=== PATIENT | male | born 1965 | race Caucasian/White ===

== ENCOUNTER 2024-06-04 10:40 | Emergency (ER) | payer MEDICARE, SELFPAY ==
[2024-06-04] VITALS (9 sets, daily range): BP systolic 130–167; BP diastolic 60–104; PULSE 62–72; RESP 17–28; TEMP 36.8; O2SAT 96–99; BMI 30.4
--- NOTE | 2024-06-04 | DI.US.S_ITS ---
PROCEDURE: US PERIPH VENOUS LOW EXTREM LT INDICATIONS: LLE pain redness swelling; hx major trauma repair TECHNIQUE: Real-time imaging, as well as color and pulse Doppler interrogation, were performed of the lower extremity deep veins from the inguinal ligament to the popliteal fossa, with documentation of the visualized calf veins. COMPARISON: None. FINDINGS: The common femoral, femoral, popliteal, and the visualized calf veins are normally compressible, and free of intraluminal thrombus. Color and pulse Doppler demonstrate normal phasic intraluminal flow. There is normal augmentation response to distal compression maneuver. Nonspecific subcutaneous edema is seen at the distal lower extremity. IMPRESSION: No findings of lower extremity deep venous thrombosis. Approved by: Guido Carver M.D. on 06/04/2024 at 14:02
--- NOTE | 2024-06-04 11:31 | ED_ITS ---
HPI - Extremity Problem <Ml Mukherjee PA-C - Last Filed: 06/04/24 19:20> General Chief complaint: Extremity Problem,Nontraumatic Stated complaint: Possible Lower left leg Infection . Time Seen by Provider: 06/04/24 11:31 Source: patient Mode of arrival: Ambulatory History of Present Illness HPI Narrative: Mr. Daniel is a pleasant 58-year-old male with a past medical history of significant left leg trauma in who presents to the emergency department for left lower leg pain, redness, swelling x 5 days. He lives in [facility], and drove to this area on Friday, about 6-8 [address] ride. He wore compression sock and soccer ha guard to cover his skin graft for this long drive. He went to sleep with this compression sock and ha guard on and when he woke up in the morning and removed it the leg was very painful and swollen. Patient went to [facility] emergency department on 06/01/24 for 1 day of severe pain behind the left knee, it was not red at this time. Patient had a left lower extremity vascular ultrasound performed which revealed no evidence of DVT however it was a limited study due to scar tissue. The x-ray demonstrates extremely severe arthritic changes of the knee. Patient was prescribed Percocet and meloxicam. Patient states the next morning when he woke up, the leg was extremely red and discolored and became even more swollen. He is here today because of this redness and concern for infection. Denies fevers but reports he has been feeling very warm and sweaty and just feels overall fatigued and not quite right. He denies chest pain, shortness of breath, blood thinner use, he does not regularly follow with an orthopedic doctor, he had a surgery performed in [place] in the . He reports that there is hardware in the left leg. He does have chronic decreased sensation on the top of the left foot, reports that his sensation is currently the same but he does have the sensation of pins and needles on the bottom of the foot because of the swelling. His only chronic prescription is naproxen for pain. Related Data Previous Rx's Medication Instructions Recorded cephalexin 500 mg capsule 500 mg PO QID 7 days #28 caps 06/04/24 doxycycline hyclate 100 mg capsule 100 mg PO BID 7 days #14 caps 04/25/25 ondansetron 4 mg disintegrating 4 mg PO Q8H PRN nausea and 06/04/24 tablet vomiting #14 tabs Allergies Allergy/AdvReac Type Severity Reaction Status Date / Time Penicillins Allergy Verified 06/04/24 10:59 Review of Systems <Ml Mukherjee PA-C - Last Filed: 06/04/24 19:20> Review of Systems ROS Unobtainable: All systems reviewed & are unremarkable except as noted in HPI and below Patient History <Ml Mukherjee PA-C - Last Filed: 06/04/24 19:20> Medical History (Updated 06/05/24 @ 19:18 by Silvana Waldorp MD) Traumatic injury of left lower extremity Tobacco dependence Hyperlipidemia Family History (Updated 06/05/24 @ 19:19 by Silvana Waldrop MD) Father Diabetes mellitus Aunt Cancer Social History household members: spouse Smoking Status: Current every day smoker Smoking Status: Current every day smoker Exam <Ml Mukherjee PA-C - Last Filed: 06/04/24 19:20> Narrative Exam Narrative: GENERAL: 58 year old patient appears stated age. Well-developed patient, in no acute distress. HEAD: Atraumatic. Normocephalic. EYES: No scleral icterus. No injection or drainage. NECK: Trachea midline. Cervical ROM intact. CARDIOVASCULAR: Somewhat irregular rhythm, normal rate. RESPIRATORY: ?Nonlabored respirations. ?Speaking in clear, full sentences. ?Clear to auscultation. Breath sounds equal bilaterally. No wheezes, rales, or rhonchi. ? GASTROINTESTINAL: Abdomen soft, non-tender, nondistended. EXTREMITIES: Left lower extremity with significant chronic skin deformity, across the mid left knee is a line of surgical scar tissue from prior skin graft extending to the mid anterior ha. Significant scar tissue on both anterior and posterior left knee. Overlying the skin graft there is darkened erythema and purple skin, there is blotching, NONblanchable erythema extending distally down the anterior left lower extremity extending onto the foot. There is 2-3+ pitting edema of the left lower extremity. On the lateral left knee there is a slight skin abrasion with serosanguineous drainage. Patient does have sensation intact to light touch on the plantar and dorsal foot, DP and PT pulses are not palpable in the left foot however they are detectable with Doppler US. Capillary refill takes approximately 3 seconds on the distal left toes. There is no erythema, streaking, or skin changes proximal to the old surgical scars. The right lower extremity is normal with no edema erythema and strong palpable pulses. There is no palpable crepitus, no pain out of proportion to the exam. NEURO: AOx3. ?Clear speech. ?Moves all 4 extremities appropriately, pain with weight-bearing on the left lower extremity. Initial Vital Signs Initial Vital Signs: Vital Signs Temperature 98.3 F 06/04/24 10:54 Pulse Rate 72 06/04/24 10:54 Respiratory Rate 20 06/04/24 10:54 Blood Pressure 143/84 H 06/04/24 10:54 Pulse Oximetry 97 06/04/24 10:54 Oxygen Delivery Method Room Air 06/04/24 10:54 <Jono Sy MD - Last Filed: 06/09/24 07:31> Initial Vital Signs Initial Vital Signs: Vital Signs Temperature 98.3 F 06/04/24 10:54 Pulse Rate 72 06/04/24 10:54 Respiratory Rate 20 06/04/24 10:54 Blood Pressure 143/84 H 06/04/24 10:54 Pulse Oximetry 97 06/04/24 10:54 Oxygen Delivery Method Room Air 06/04/24 10:54 Course <Ml Mukherjee PA-C - Last Filed: 06/04/24 19:20> Orders Ordered: Discontinued Medications Doxycycline Hyclate (Doxycycline Hyclate 100 Mg Tablet) 100 mg PO NOW ONE Stop: 06/04/24 15:53 Last Admin: 06/04/24 15:58 Dose: 100 mg Documented By: RB Sodium Chloride (Normal Saline 0.9%) 1,000 mls @ 1,000 mls/hr IV BOLUS ONE Stop: 06/04/24 12:44 Last Infusion: 06/04/24 13:48 Dose: Infused Documented By: Admin: 06/04/24 12:37 Dose: 1,000 mls/hr Documented By: RB Ceftriaxone Sodium 1,000 mg/ (Sodium Chloride) 100 mls @ 200 mls/hr IV NOW ONE Stop: 06/04/24 14:24 Last Infusion: 06/04/24 15:12 Dose: Infused Documented By: Admin: 06/04/24 14:30 Dose: 200 mls/hr Documented By: RB Ondansetron HCl (Ondansetron 4 Mg/2 Ml Inj) 4 mg IV NOW PRN PRN Reason: Nausea And Vomiting Ondansetron HCl (Ondansetron 4 Mg Odt) 4 mg SL NOW PRN PRN Reason: Nausea And Vomiting Ondansetron HCl (Ondansetron 4 Mg Odt) 4 mg SL NOW ONE Stop: 06/04/24 15:55 Last Admin: 06/04/24 15:58 Dose: 4 mg Documented By: RB Vital Signs Vital signs: Vital Signs - 8 hr 06/04/24 10:54 06/04/24 11:45 06/04/24 12:00 Temperature 98.3 F Pulse Rate 72 66 62 Respiratory Rate 20 Blood Pressure 143/84 H 142/74 H 151/73 H Pulse Oximetry 97 97 97 Oxygen Delivery Method Room Air Room Air Room Air 06/04/24 12:30 06/04/24 13:00 06/04/24 13:30 Temperature Pulse Rate 64 67 67 Respiratory Rate 24 28 H 26 H Blood Pressure 130/83 167/72 H 159/104 H Pulse Oximetry 97 98 98 Oxygen Delivery Method Room Air Room Air Room Air 06/04/24 14:00 06/04/24 14:30 06/04/24 15:30 Temperature Pulse Rate 67 67 72 Respiratory Rate 27 H 17 24 Blood Pressure 143/60 H 152/65 H 156/76 H Pulse Oximetry 99 98 96 Oxygen Delivery Method Room Air Room Air Room Air <Jono Sy MD - Last Filed: 06/09/24 07:31> Orders Ordered: Discontinued Medications Doxycycline Hyclate (Doxycycline Hyclate 100 Mg Tablet) 100 mg PO NOW ONE Stop: 06/04/24 15:53 Last Admin: 06/04/24 15:58 Dose: 100 mg Documented By: RB Sodium Chloride (Normal Saline 0.9%) 1,000 mls @ 1,000 mls/hr IV BOLUS ONE Stop: 06/04/24 12:44 Last Infusion: 06/04/24 13:48 Dose: Infused Documented By: Admin: 06/04/24 12:37 Dose: 1,000 mls/hr Documented By: RB Ceftriaxone Sodium 1,000 mg/ (Sodium Chloride) 100 mls @ 200 mls/hr IV NOW ONE Stop: 06/04/24 14:24 Last Infusion: 06/04/24 15:12 Dose: Infused Documented By: Admin: 06/04/24 14:30 Dose: 200 mls/hr Documented By: RB Ondansetron HCl (Ondansetron 4 Mg/2 Ml Inj) 4 mg IV NOW PRN PRN Reason: Nausea And Vomiting Ondansetron HCl (Ondansetron 4 Mg Odt) 4 mg SL NOW PRN PRN Reason: Nausea And Vomiting Ondansetron HCl (Ondansetron 4 Mg Odt) 4 mg SL NOW ONE Stop: 06/04/24 15:55 Last Admin: 06/04/24 15:58 Dose: 4 mg Documented By: RB Vital Signs Vital signs: Vital Signs - 8 hr 06/04/24 10:54 06/04/24 11:45 06/04/24 12:00 Temperature 98.3 F Pulse Rate 72 66 62 Respiratory Rate 20 Blood Pressure 143/84 H 142/74 H 151/73 H Pulse Oximetry 97 97 97 Oxygen Delivery Method Room Air Room Air Room Air 06/04/24 12:30 06/04/24 13:00 06/04/24 13:30 Temperature Pulse Rate 64 67 67 Respiratory Rate 24 28 H 26 H Blood Pressure 130/83 167/72 H 159/104 H Pulse Oximetry 97 98 98 Oxygen Delivery Method Room Air Room Air Room Air 06/04/24 14:00 06/04/24 14:30 06/04/24 15:30 Temperature Pulse Rate 67 67 72 Respiratory Rate 27 H 17 24 Blood Pressure 143/60 H 152/65 H 156/76 H Pulse Oximetry 99 98 96 Oxygen Delivery Method Room Air Room Air Room Air MDM - Extremity (Nontraumatic) <Ml Mukherjee PA-C - Last Filed: 06/04/24 19:20> Medical Records Attestation: I reviewed the patient's medical records. Medical records narrative: No medical records in our EMR however I did review printed records from [employer] on 06/01/24. Lab Data 06/04/24 12:22 06/04/24 12:22 Labs: Lab Results 06/04/24 06/04/24 Range/Units 12:22 13:40 WBC 8.8 (4.5-11.0) X10^3/uL RBC 4.52 (4.5-5.9) X10^6/uL Hgb 14.0 (13.5-17.5) g/dL Hct 39.8 L (41-53) % MCV 88.1 (80-100) fL MCH 31.0 (26-34) PG MCHC 35.2 (30-36) % RDW 14.4 (11.6-14.8) % Plt Count 179 (150-400) X10^3/uL Neut % (Auto) 72.9 (50-75) % Lymph % (Auto) 15.1 L (25-40) % Lyman % (Auto) 11.2 (3-14) % Eos % (Auto) 0.2 L (2-4) % Baso % (Auto) 0.6 (0-2) % Neut # (Auto) 6400 (2286-4392) /uL Lymph # (Auto) 1300 (9882-0643) /uL Lyman # (Auto) 1000 H (0-900) /uL Eos # (Auto) 0 (0-450) /uL Baso # (Auto) 100 (0-100) /uL PT 13.4 H (9.4-12.5) SECONDS INR 1.2 (0.9-1.3) APTT 30 (25.1-36.5) SECONDS Sodium 132 L (137-145) mmol/L Potassium 4.0 (3.4-5.1) mmol/L Chloride 103 (98-107) mmol/L Carbon Dioxide 20 L (22-32) mmol/L BUN 25 H (9-20) mg/dL Creatinine 0.96 (0.66-1.25) mg/dL Estimated GFR > 60 (>60) mL/min BUN/Creatinine Ratio 26.0 H (6-22) Glucose 138 H (70-99) mg/dL Lactate 1.2 (0.7-2.1) mmol/L Calcium 8.3 L (8.4-10.2) mg/dL Total Bilirubin 1.1 (0.2-1.3) mg/dL AST 63 H (17-59) IU/L ALT 58 H (<50) IU/L Alkaline Phosphatase 66 (38-126) U/L Total Creatine Kinase 73 (55-170) U/L Total Protein 6.9 (6.3-8.2) g/dL Albumin 3.6 (3.5-5.0) g/dL Globulin 3.3 (1.7-4.1) g/dL Albumin/Globulin Ratio 1.1 (1.0-2.8) Lipase 24 (23-300) U/L Procalcitonin 1.14 H (<0.5) ng/mL Urine Color Dark yellow Urine Appearance Clear Urine pH 6.0 (4.5-8.0) Ur Specific [place] 1.020 (1.000-1.035) Urine Protein 1+ H (Negative) Urine Glucose (UA) Negative (Negative) g/dL Urine Ketones Negative (NEGATIVE) Urine Occult Blood 1+ H (Negative) Urine Nitrate Positive H (Negative) Urine Bilirubin Negative (NEGATIVE) Urine Urobilinogen 2.0 H (0.2) E.U./dL Ur Leukocyte Esterase Negative (NEGATIVE) Urine RBC 1-5/hpf (0-5/HPF) Urine WBC None seen (0-5/HPF) Ur Squamous Epith Cells None seen (0-5/HPF) Urine Bacteria None seen (None) Ur Culture Indicated? Specimen cultured Vol Urine Centrifuged 10ml (spun) Imaging Data LLE Venous US: Radiologist's Impression: PROCEDURE: US PERIPH VENOUS LOW EXTREM LT INDICATIONS: LLE pain redness swelling; hx major trauma repair TECHNIQUE: Real-time imaging, as well as color and pulse Doppler interrogation, were performed of the lower extremity deep veins from the inguinal ligament to the popliteal fossa, with documentation of the visualized calf veins. COMPARISON: None. FINDINGS: The common femoral, femoral, popliteal, and the visualized calf veins are normally compressible, and free of intraluminal thrombus. Color and pulse Doppler demonstrate normal phasic intraluminal flow. There is normal augmentation response to distal compression maneuver. Nonspecific subcutaneous edema is seen at the distal lower extremity. IMPRESSION: No findings of lower extremity deep venous thrombosis. Chest x-ray: Radiologist's Impression: PROCEDURE: XR CHEST 1V INDICATIONS: suspected sepsis TECHNIQUE: One view of the chest was acquired. COMPARISON: None. FINDINGS: Surgical changes and devices: None. Lungs and pleura: Lungs are clear. No pleural effusions or pneumothorax. Mediastinum: Mediastinal contours appear normal. Heart size is normal. Bones and chest wall: No suspicious bony lesions. Overlying soft tissues appear unremarkable. IMPRESSION: No acute cardiopulmonary abnormality is seen X-Ray Left Knee: Radiologist's Impression: PROCEDURE: XR KNEE LT 3V INDICATIONS: swelling in left lower extremeity TECHNIQUE: 3 views of the knee were acquired. COMPARISON: None. FINDINGS: Bones: Tricompartmental degenerative changes with remodeling of the articular surfaces. Sclerotic appearance of the posterior medial tibial plateau. Chronic osseous irregularity mild heterotopic calcifications are in the may be related to remote prior trauma. Soft tissues: Small joint effusion with possible suprapatellar loose body. IMPRESSION: 1. Suspected chronic posttraumatic changes surrounding the knee with superimposed tricompartmental osteoarthrosis. Findings could obscure an acute injury, and further evaluation with CT or MRI could be performed if there is continued clinical concern. 2. Small joint effusion with suspected loose body. CT Angio Abd Aorta Runoff : Radiologist's Impression: PROCEDURE: CT ANGIO ABD AORTA RUNOFF INDICATIONS: LLE red/swollen/painful x 5 days; hx major LLE trauma repair TECHNIQUE: After the administration of intravenous contrast, 2.5 mm sections acquired from T12 to the feet, with optional delayed image acquisition from the knees to the feet. 3-dimensional maximum intensity projection (MIP) coronal and sagittal reformats, and/or 3-dimensional volume rendering reformatting was then performed. For radiation dose reduction, the following was used: automated exposure control. COMPARISON: [facility], , US PERIPH VENOUS LOW EXTREM LT, 06/04/2024, 13:22. [facility], , XR KNEE LT 3V, 06/04/2024, 11:51. FINDINGS: Image Quality: Diagnostic. Abdominal aorta: [id number] atherosclerotic calcifications. No aneurysm or dissection. Splanchnic vessels: Celiac trunk, superior mesenteric artery, and inferior mesenteric artery are patent. Renal arteries are patent bilaterally. Right lower extremity: Atherosclerotic calcifications within the common, external, and internal iliac arteries without hemodynamically significant stenosis. Common, superficial, and deep femoral arteries are patent. Popliteal artery is patent where visualized. Anterior tibial artery origin and tibioperoneal trunk are patent. Posterior tibial artery is not well visualized after its origin and there is 2 vessel runoff to the foot. Posterior tibial artery within the foot is fed via the peroneal artery. Dorsalis pedis artery appears patent. Left lower extremity: Atherosclerotic calcifications within the common, external, and internal iliac arteries without hemodynamically significant stenosis. Common, superficial, and deep femoral arteries are patent. Mild atherosclerotic calcifications within the above knee popliteal artery without hemodynamically significant stenosis. Anterior tibial artery origin and tibioperoneal trunk are patent. Posterior tibial artery is not well visualized after its origin and there is 2 vessel runoff to the foot. Posterior tibial artery within the foot is fed via the peroneal artery. Dorsalis pedis artery appears patent. Lower Chest: Heart is mildly enlarged. Lung bases are clear. ABDOMEN: Liver: No solid mass. Liver is hypoattenuating compatible with fatty infiltration. Gallbladder: No radiopaque gallstones or wall thickening. Biliary ducts: No biliary dilation. Pancreas: No ductal dilation. Spleen: Size is within normal limits. Adrenal Glands: No adrenal nodules. Kidneys and Ureters: No hydronephrosis. No solid mass. No complex renal cystic lesion which requires follow up. Stomach and Bowel: Normal colonic caliber, without significant wall thickening. Peritoneum: No abnormal intraperitoneal fluid. No free air. Ventral Wall: No hernia. Abdominal Nodes: No retroperitoneal or mesenteric adenopathy by size criteria. Vessels: Aorta and inferior vena cava are normal in size. PELVIS: Pelvic Organs: Prostate is mildly enlarged. Bladder: Unremarkable. Pelvic Nodes: No enlarged lymph nodes. Prominent left popliteal lymph nodes are noted that are likely reactive. Miscellaneous: No inguinal hernias are seen. Bones and extremities: No aggressive osseous abnormality. Subcutaneous edema is seen throughout the left foot and ankle as well as the lower leg ache and the lateral portion of the distal thigh. No soft tissue gas. No focal fluid collection. No intermuscular fascial edema is seen. No focal osseous erosion is seen to suggest osteomyelitis. Degenerative changes are seen in the left midfoot. Mild mortise joint osteoarthrosis bilaterally. Bilateral calcaneal enthesophytes. Postsurgical changes at the medial left lower leg with loss of normal subcutaneous tissues in the proximal calf. Right knee arthroplasty is present. Chronic posttraumatic changes in the left knee with superimposed severe tricompartmental osteoarthrosis. Large ossification posterior to the knee likely an intra-articular loose body. A few small ossifications are seen adjacent to the posterior intercondylar notch. Partial osseous bridging across the proximal tibiofibular joint. IMPRESSION: 1. No acute vascular occlusion or high-grade stenosis. Poor visualization of the bilateral posterior tibial arteries, which may be congenital given symmetry and normal distal flow versus secondary to chronic occlusions. 2. Diffuse subcutaneous edema in the left lower leg and foot, which is nonspecific but may be related to cellulitis. No soft tissue gas. No signs of fasciitis or osteomyelitis. 3. Chronic posttraumatic changes in the left knee and left calf with superimposed severe left knee osteoarthrosis. [facility] Narrative Medical decision making narrative: 58-year-old male with a past medical history of significant left leg trauma in who presents to the emergency department for left lower leg pain, redness, swelling x 5 days. Differential diagnosis includes but is not limited to cellulitis, DVT, venous stasis, skin graft complication, vascular complication, osteomyelitis, etc. On exam the patient is in no acute distress, nontoxic appearing, vital signs appropriate. He is afebrile but reports feeling feverish. He has significant chronic scarring deformities of the left knee from prior skin grafts, hardware. He now has extensive edema, nonblachable erythema skin changes of the left lower extremity that is new. We will obtain labs, blood cultures, CT ABD Angio with runoff, left lower extremity venous ultrasound, knee and chest x-ray. Patient declines any pain medication at this time. Case was discussed with Dr. Sy. Labs reveal normal WBC count 8.8, hemoglobin 14.0, hematocrit 39.8. Platelets 179. Sodium slightly decreased at 132, potassium 4.0, BUN 25, creatinine 0.96. Glucose 138. Lactate normal at 1.2. Calcium slightly low at 8.3. Mild elevations of AST and ALT at 63 and 58 respectively. Procalcitonin is elevated at 1.14. CK normal 73. Urine was dark so urinalysis was obtained revealing nitrate positive however no other signs of infection, urine was sent for culture. Patient was treated with 1 g of IV Rocephin for a skin infection which will also cover for any urine infection. Chest x-ray reveals no acute cardiopulmonary abnormality. Left lower extremity vascular ultrasound reveals no findings of lower extremity deep venous thrombosis. Knee x-ray reveals suspected chronic posttraumatic changes around the knee with superimposed tricompartmental osteoarthritis. Findings could obscure an acute injury and further evaluation with CT or MRI could be performed. Small joint effusion with suspected loose body. CT angio abdominal aorta with runoff reveals no acute vascular occlusion or high-grade stenosis. There is diffuse subcutaneous edema in the left lower leg and foot, which is nonspecific may be related to cellulitis. No soft tissue gas. No signs of fasciitis or osteomyelitis. Chronic posttraumatic changes in the left knee and left calf with superimposed severe left knee osteoarthrosis. Overall patient's workup physical exam consistent with cellulitis of the left lower extremity, no signs of deep space infection at this time or vascular problems. Patient was treated with Rocephin and doxycycline in the emergency department, we will continue with doxycycline and cephalexin at home. Recommended supportive care with elevation, compression, prompt follow up with PCP and ortho/vascular surgery for further management. Discussed very strict ED return precautions. Patient verbalized understanding all information is agreeable with the plan, feeling better, stable for discharge home. <Jono Sy MD - Last Filed: 06/09/24 07:31> Lab Data Labs: Lab Results 06/04/24 06/04/24 Range/Units 12:22 13:40 WBC 8.8 (4.5-11.0) X10^3/uL RBC 4.52 (4.5-5.9) X10^6/uL Hgb 14.0 (13.5-17.5) g/dL Hct 39.8 L (41-53) % MCV 88.1 (80-100) fL MCH 31.0 (26-34) PG MCHC 35.2 (30-36) % RDW 14.4 (11.6-14.8) % Plt Count 179 (150-400) X10^3/uL Neut % (Auto) 72.9 (50-75) % Lymph % (Auto) 15.1 L (25-40) % Lyman % (Auto) 11.2 (3-14) % Eos % (Auto) 0.2 L (2-4) % Baso % (Auto) 0.6 (0-2) % Neut # (Auto) 6400 (3605-5764) /uL Lymph # (Auto) 1300 (3999-1165) /uL Lyman # (Auto) 1000 H (0-900) /uL Eos # (Auto) 0 (0-450) /uL Baso # (Auto) 100 (0-100) /uL PT 13.4 H (9.4-12.5) SECONDS INR 1.2 (0.9-1.3) APTT 30 (25.1-36.5) SECONDS Sodium 132 L (137-145) mmol/L Potassium 4.0 (3.4-5.1) mmol/L Chloride 103 (98-107) mmol/L Carbon Dioxide 20 L (22-32) mmol/L BUN 25 H (9-20) mg/dL Creatinine 0.96 (0.66-1.25) mg/dL Estimated GFR > 60 (>60) mL/min BUN/Creatinine Ratio 26.0 H (6-22) Glucose 138 H (70-99) mg/dL Lactate 1.2 (0.7-2.1) mmol/L Calcium 8.3 L (8.4-10.2) mg/dL Total Bilirubin 1.1 (0.2-1.3) mg/dL AST 63 H (17-59) IU/L ALT 58 H (<50) IU/L Alkaline Phosphatase 66 (38-126) U/L Total Creatine Kinase 73 (55-170) U/L Total Protein 6.9 (6.3-8.2) g/dL Albumin 3.6 (3.5-5.0) g/dL Globulin 3.3 (1.7-4.1) g/dL Albumin/Globulin Ratio 1.1 (1.0-2.8) Lipase 24 (23-300) U/L Procalcitonin 1.14 H (<0.5) ng/mL Urine Color Dark yellow Urine Appearance Clear Urine pH 6.0 (4.5-8.0) Ur Specific [place] 1.020 (1.000-1.035) Urine Protein 1+ H (Negative) Urine Glucose (UA) Negative (Negative) g/dL Urine Ketones Negative (NEGATIVE) Urine Occult Blood 1+ H (Negative) Urine Nitrate Positive H (Negative) Urine Bilirubin Negative (NEGATIVE) Urine Urobilinogen 2.0 H (0.2) E.U./dL Ur Leukocyte Esterase Negative (NEGATIVE) Urine RBC 1-5/hpf (0-5/HPF) Urine WBC None seen (0-5/HPF) Ur Squamous Epith Cells None seen (0-5/HPF) Urine Bacteria None seen (None) Ur Culture Indicated? Specimen cultured Vol Urine Centrifuged 10ml (spun) Discharge Plan Departure Patient Disposition: Home Clinical Impression: Cellulitis of left lower extremity, Arthritis of knee, left Instructions: DI for Cellulitis -- Adult Activity Restrictions/Additional Instructions: Dear Mr. Daniel, Thank you for coming to the emergency department. Today we obtained lab work, blood cultures, urine testing, chest x-ray, knee x-ray, left lower leg ultrasound, and a CT scan of the arteries in your abdomen and legs. Your workup today is consistent with cellulitis which is skin and soft tissue infection of the left leg. Please complete the full course of prescribed oral antibiotics, use the previously prescribed pain medication as needed. Please rest, elevate the left leg above the level of the heart, use a comfortable compression stocking and keep the leg clean, dry and covered. Reutrn to the ER immediately for worsening pain, swelling, color change, fevers, chills, chest pain, shortness of breath or any other concerns. Please follow up with your primary care doctor within the next 2-3 days for ER follow-up. (If you do not have a PCP you can call [phone]. ?to schedule an appointment with an [facility] Primary Care Provider) IF YOU DEVELOP ANY NEW OR WORSENING SYMPTOMS, RETURN TO THE ER! Please read the attached instructions, they highlight more specific treatments and interventions for you at home. Thank you for letting me participate in your care, Ml Mukherjee PA-C Prescriptions: New cephalexin 500 mg capsule 500 mg PO QID 7 Days Qty: 28 0RF ondansetron 4 mg tablet,disintegrating 4 mg PO Q8H PRN (Reason: nausea and vomiting) Qty: 14 0RF doxycycline hyclate 100 mg capsule 100 mg PO BID 7 Days Qty: 14 0RF Stand Alone Forms: Patient Portal/API/Survey ED Sign-out <Jono Sy MD - Last Filed: 06/09/24 07:31> [facility] I was immediately available in the department for consultation. ?This documentation has been reviewed and I agree with assessment and plan. Supervised by Jono Sy MD
--- NOTE | 2024-06-04 11:46 | DI.RAD.S_ITS ---
PROCEDURE: XR CHEST 1V INDICATIONS: suspected sepsis TECHNIQUE: One view of the chest was acquired. COMPARISON: None. FINDINGS: Surgical changes and devices: None. Lungs and pleura: Lungs are clear. No pleural effusions or pneumothorax. Mediastinum: Mediastinal contours appear normal. Heart size is normal. Bones and chest wall: No suspicious bony lesions. Overlying soft tissues appear unremarkable. IMPRESSION: No acute cardiopulmonary abnormality is seen. Approved by: Guido Carver M.D. on 06/04/2024 at 12:19
--- NOTE | 2024-06-04 11:51 | EKG_ITS ---
[address] [address] Test Date: 2024-06-04 Pat Name: Sharath Daniel Department: Room: Gender: Male [employer] Manager: MODESTA : 1965 Requested By: Order Number: [id number] Reading MD: Sharath Coates MD Measurements Intervals [place] Rate: 72 P: 10 KS: 146 QRS: -29 QRSD: 92 T: 55 QT: 408 QTc: 446 Interpretive Statements Sinus rhythm with premature atrial complexes Possible Lateral infarct , age undetermined Possible Inferior infarct , age undetermined NO PRIOR TRACING Electronically Signed On 06-04-2024 16:44:09 PDT by Sharath Coates MD
--- NOTE | 2024-06-04 11:56 | DI.RAD.S_ITS ---
PROCEDURE: XR KNEE LT 3V INDICATIONS: swelling in left lower extremeity TECHNIQUE: 3 views of the knee were acquired. COMPARISON: None. FINDINGS: Bones: Tricompartmental degenerative changes with remodeling of the articular surfaces. Sclerotic appearance of the posterior medial tibial plateau. Chronic osseous irregularity mild heterotopic calcifications are in the may be related to remote prior trauma. Soft tissues: Small joint effusion with possible suprapatellar loose body. IMPRESSION: 1. Suspected chronic posttraumatic changes surrounding the knee with superimposed tricompartmental osteoarthrosis. Findings could obscure an acute injury, and further evaluation with CT or MRI could be performed if there is continued clinical concern. 2. Small joint effusion with suspected loose body. Approved by: Guido Carver M.D. on 06/04/2024 at 12:23
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
[2024-06-04] MEDS: SODIUM CHLORIDE 0.9% 1,000 ML 1000 ML IV (12:37)
[2024-06-04 12:44] LABS: Add Manual Diff / Slide Review NO; Basophils Absolute Auto 100 /uL (0-100); Basophils Percent Auto 0.6 % (0-2); Eosinophils Absolute Auto 0 /uL (0-450); Eosinophils Percent Auto 0.2 % (2-4); Hematocrit 39.8 % (41-53); Lymphocytes Absolute Auto 1300 /uL (1100-4500); Lymphocytes Percent Auto 15.1 % (25-40); Mean Corpuscular HGB Conc 35.2 % (30-36); Mean Corpuscular Volume 88.1 fL (80-100); Monocytes Absolute Auto 1000 /uL (0-900); Monocytes Percent Auto 11.2 % (3-14); Neutrophils Absolute Auto 6400 /uL (1500-7000); Neutrophils Percent Auto 72.9 % (50-75); Platelet Count 179 X10^3/uL (150-400); Red Blood Cell Count 4.52 X10^6/uL (4.5-5.9); Red Cell Distribution Width 14.4 % (11.6-14.8); White Blood Cell Count 8.8 X10^3/uL (4.5-11.0)
[2024-06-04 12:49] LABS: INR 1.2 (0.9-1.3); Prothrombin Time 13.4 SECONDS (9.4-12.5)
[2024-06-04 12:52] LABS: PTT Partial Thromboplastin Tim 30 SECONDS (25.1-36.5)
[2024-06-04 12:55] LABS: Alanine Aminotransferase 58 IU/L (<50); Albumin 3.6 g/dL (3.5-5.0); Albumin Globulin Ratio 1.1 (1.0-2.8); Alkaline Phosphatase 66 U/L (38-126); Aspartate Aminotransferase 63 IU/L (17-59); Bilirubin Total 1.1 mg/dL (0.2-1.3); Blood Urea Nitrogen 25 mg/dL (9-20); Calcium 8.3 mg/dL (8.4-10.2); Carbon Dioxide 20 mmol/L (22-32); Chloride 103 mmol/L (98-107); Estimated Glomerular Filt Rate > 60 mL/min (>60); Globulin 3.3 g/dL (1.7-4.1); Glucose 138 mg/dL (70-99); HEMOLYSIS 50 (0-50); Lactate (Lactic Acid) 1.2 mmol/L (0.7-2.1); Lipase 24 U/L (23-300); Sodium 132 mmol/L (137-145); Total Protein 6.9 g/dL (6.3-8.2)
[2024-06-04 13:11] LABS: Procalcitonin 1.14 ng/mL (<0.5)
[2024-06-04 14:05] LABS: Appearance Urine UA CLEAR; Bilirubin Urine UA NEGATIVE (NEGATIVE); Glucose Urine UA NEGATIVE (Negative); Ketones Urine UA NEGATIVE (NEGATIVE); Leukocyte Esterase Urine UA NEGATIVE (NEGATIVE); Nitrite Urine UA POSITIVE (Negative); Occult Blood Urine UA 1+ (Negative); Protein Urine UA 1+ (Negative)
[2024-06-04 14:09] LABS: Color Urine UA Dark Yellow
[2024-06-04 14:15] LABS: Bacteria Urine None Seen; Culture Indicated Urine Specimen Cultured; RBC Urine 1-5/HPF (0-5/HPF); Squamous Epithelial Cell Urine None Seen (0-5/HPF); Urine Volume 10mL (spun); WBC Urine None Seen (0-5/HPF)
[2024-06-04] MEDS: cefTRIAXone 1,000 MG in SODIUM CHLORIDE 0.9% 100 ML 200 MG IV (14:30)
[2024-06-04 14:41] LABS: Creatine Kinase 73 U/L (55-170)
[2024-06-04] MEDS: ONDANSETRON 4 MG ODT SL (15:58)
[2024-06-04] MEDS: DOXYCYCLINE HYCLATE 100 MG TABLET PO (15:58)
== END 2024-06-04 16:15 | disposition home or self-care (01) ==
PROVIDERS: Emergency Provider Physician Assistant
DX: L03.116 Cellulitis of left lower limb (principal); M17.12 Unilateral primary osteoarthritis, left knee
CPT/HCPCS: 36415; 71045; 73562; 75635; 80053; 81001; 82550; 83605; 83690; 84145; 85025; 85610; 85730; 87040; 87086; 93005; 93010; 93971; 99284; J0696; Q9967

== ENCOUNTER 2024-06-05 13:56 | Inpatient (IN) | payer MEDICARE, SELFPAY ==
[2024-06-05] VITALS (11 sets, daily range): BP systolic 130–153; BP diastolic 71–87; PULSE 68–73; RESP 17–18; TEMP 36.8–38.2; O2SAT 97–98; BMI 30.4
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
[2024-06-05 14:34] LABS: Add Manual Diff / Slide Review NO; Basophils Absolute Auto 100 /uL (0-100); Basophils Percent Auto 0.5 % (0-2); Eosinophils Absolute Auto 0 /uL (0-450); Eosinophils Percent Auto 0.3 % (2-4); Hematocrit 40.3 % (41-53); Hemoglobin 14.1 g/dL (13.5-17.5); Lymphocytes Absolute Auto 1100 /uL (1100-4500); Lymphocytes Percent Auto 9.7 % (25-40); Mean Corpuscular HGB Conc 34.9 % (30-36); Mean Corpuscular Hemoglobin 30.7 PG (26-34); Mean Corpuscular Volume 87.8 fL (80-100); Monocytes Absolute Auto 1200 /uL (0-900); Monocytes Percent Auto 10.3 % (3-14); Neutrophils Absolute Auto 9200 /uL (1500-7000); Neutrophils Percent Auto 79.2 % (50-75); Platelet Count 216 X10^3/uL (150-400); Red Cell Distribution Width 14.3 % (11.6-14.8); White Blood Cell Count 11.6 X10^3/uL (4.5-11.0)
[2024-06-05 14:45] LABS: Lactate (Lactic Acid) 1.4 mmol/L (0.7-2.1)
[2024-06-05 14:46] LABS: Alanine Aminotransferase 74 IU/L (<50); Albumin 3.6 g/dL (3.5-5.0); Albumin Globulin Ratio 1.1 (1.0-2.8); Alkaline Phosphatase 90 U/L (38-126); Aspartate Aminotransferase 56 IU/L (17-59); Bilirubin Total 1.1 mg/dL (0.2-1.3); Blood Urea Nitrogen 16 mg/dL (9-20); Calcium 8.4 mg/dL (8.4-10.2); Carbon Dioxide 24 mmol/L (22-32); Chloride 103 mmol/L (98-107); Estimated Glomerular Filt Rate > 60 mL/min (>60); Globulin 3.3 g/dL (1.7-4.1); Glucose 148 mg/dL (70-99); HEMOLYSIS < 15 (0-50); Potassium 3.7 mmol/L (3.4-5.1); Sodium 135 mmol/L (137-145); Total Protein 6.9 g/dL (6.3-8.2)
[2024-06-05] MEDS: cefTRIAXone 1,000 MG in SODIUM CHLORIDE 0.9% 100 ML 200 MG IV (15:03)
[2024-06-05] MEDS: VANCOMYCIN 2,000 MG/400 ML PIGGYBACK 200 MG IV (15:43)
--- NOTE | 2024-06-05 16:47 | PC.NURSE ---
Addendum entered by Amando Woodward R.N. 06/05/24 16:52: This RN is precepting student that wrote the note below and agree with all parts of this statement. Original Note: this RN manager nursing home gave verbal report to Dago Bernard RN. My preceptor heard entire report and was with me while I gave report. This RN student took patient upstairs into room 212. Patient was able to transfer from ED stretcher to hospital bed with stand by assistance. Vancomycin infusion continued to run through out transport. Acute care kept pump that infusion was running on we returned with their pump.
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
[2024-06-05] MEDS: ACETAMINOPHEN 325 MG TABLET 650 MG PO (20:13)
[2024-06-05] MEDS: cefTRIAXone 2,000 MG in SODIUM CHLORIDE 0.9% 100 ML 200 MG IV (20:14)
[2024-06-05] MEDS: ZOLPIDEM 5 MG TABLET PO (21:09)
[2024-06-06] MEDS: VANCOMYCIN 1,500 MG/300 ML PIGGYBACK 200 MG IV (03:02)
[2024-06-06 05:23] LABS: Add Manual Diff / Slide Review NO; Basophils Absolute Auto 200 /uL (0-100); Basophils Percent Auto 1.4 % (0-2); Eosinophils Absolute Auto 100 /uL (0-450); Eosinophils Percent Auto 0.6 % (2-4); Hematocrit 39.6 % (41-53); Hemoglobin 13.7 g/dL (13.5-17.5); Lymphocytes Absolute Auto 1700 /uL (1100-4500); Lymphocytes Percent Auto 13.2 % (25-40); Mean Corpuscular HGB Conc 34.5 % (30-36); Mean Corpuscular Hemoglobin 30.3 PG (26-34); Mean Corpuscular Volume 87.6 fL (80-100); Monocytes Absolute Auto 1300 /uL (0-900); Monocytes Percent Auto 10.1 % (3-14); Neutrophils Absolute Auto 9500 /uL (1500-7000); Neutrophils Percent Auto 74.7 % (50-75); Platelet Count 218 X10^3/uL (150-400); Red Blood Cell Count 4.52 X10^6/uL (4.5-5.9); Red Cell Distribution Width 14.6 % (11.6-14.8); White Blood Cell Count 12.8 X10^3/uL (4.5-11.0)
[2024-06-06 05:33] LABS: BUN Creatinine Ratio 18.8 (6-22); Blood Urea Nitrogen 15 mg/dL (9-20); Calcium 8.3 mg/dL (8.4-10.2); Carbon Dioxide 22 mmol/L (22-32); Chloride 105 mmol/L (98-107); Estimated Glomerular Filt Rate > 60 mL/min (>60); Glucose 122 mg/dL (70-99); HEMOLYSIS < 15 (0-50); Hemoglobin A1C% w Est Avg Glu 4.8 % (4.0-6.0); Potassium 3.9 mmol/L (3.4-5.1); Sodium 136 mmol/L (137-145)
[2024-06-06 08:00] VITALS: BP 135/73; PULSE 64; RESP 16; TEMP 36.9; O2SAT 98
[2024-06-06] MEDS: ENOXAPARIN 40 MG/0.4 ML SYRINGE SUBCUT (09:46)
[2024-06-06] MEDS: HYDROCODONE/ACET 5/325 TABLET 1 TAB PO (09:47)
[2024-06-06] MEDS: SODIUM CHLORIDE 0.9% FLUSH 10 ML IV ×2 (12:18→20:44)
[2024-06-06] MEDS: VANCOMYCIN 1,250 MG/250 ML PIGGYBACK 250 MG IV ×2 (12:18→18:31)
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
[2024-06-06 19:00] VITALS: BP 143/83; PULSE 63; RESP 18; TEMP 37.4; O2SAT 98
[2024-06-06] MEDS: cefTRIAXone 2,000 MG in SODIUM CHLORIDE 0.9% 100 ML 200 MG IV (20:38)
[2024-06-06] MEDS: ZOLPIDEM 5 MG TABLET PO (22:43)
[2024-06-07] MEDS: VANCOMYCIN 1,250 MG/250 ML PIGGYBACK 250 MG IV ×2 (03:12→11:42)
[2024-06-07 08:00] VITALS: BP 133/78; PULSE 65; RESP 15; TEMP 36.6; O2SAT 97
[2024-06-07] MEDS: HYDROCODONE/ACET 5/325 TABLET 1 TAB PO ×2 (09:06→22:12)
[2024-06-07] MEDS: ENOXAPARIN 40 MG/0.4 ML SYRINGE SUBCUT (09:06)
[2024-06-07] MEDS: SODIUM CHLORIDE 0.9% FLUSH 10 ML IV ×2 (09:06→20:15)
[2024-06-07 11:06] LABS: Vancomycin Trough 10.1 ug/mL (10-20)
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
--- NOTE | 2024-06-07 16:13 | CM.DPC ---
DCP COnt: Per MD, he anticipates pt will be able to discharge on PO antibiotics once cultures return and no anticipated barriers to discharge. LEONEL Garcia
[2024-06-07] MEDS: VANCOMYCIN 1,000 MG in SODIUM CHLORIDE 0.9% 250 ML 250 MG IV ×2 (18:21→23:52)
[2024-06-07 20:00] VITALS: BP 144/85; PULSE 68; RESP 19; TEMP 36.4; O2SAT 99
[2024-06-07] MEDS: cefTRIAXone 2,000 MG in SODIUM CHLORIDE 0.9% 100 ML 200 MG IV (20:14)
[2024-06-08 06:17] LABS: BUN Creatinine Ratio 18.7 (6-22); Blood Urea Nitrogen 14 mg/dL (9-20); Calcium 8.7 mg/dL (8.4-10.2); Carbon Dioxide 22 mmol/L (22-32); Chloride 106 mmol/L (98-107); Estimated Glomerular Filt Rate > 60 mL/min (>60); Glucose 114 mg/dL (70-99); HEMOLYSIS < 15 (0-50); Potassium 4.2 mmol/L (3.4-5.1); Sodium 136 mmol/L (137-145)
[2024-06-08] MEDS: VANCOMYCIN 1,000 MG in SODIUM CHLORIDE 0.9% 250 ML 250 MG IV ×3 (06:18→18:17)
[2024-06-08 06:22] LABS: Add Manual Diff / Slide Review NO; Basophils Absolute Auto 200 /uL (0-100); Basophils Percent Auto 1.2 % (0-2); Eosinophils Absolute Auto 300 /uL (0-450); Eosinophils Percent Auto 2.1 % (2-4); Hematocrit 39.3 % (41-53); Hemoglobin 13.8 g/dL (13.5-17.5); Lymphocytes Absolute Auto 3400 /uL (1100-4500); Lymphocytes Percent Auto 22.8 % (25-40); Mean Corpuscular HGB Conc 35.1 % (30-36); Mean Corpuscular Hemoglobin 30.6 PG (26-34); Mean Corpuscular Volume 87.2 fL (80-100); Monocytes Absolute Auto 1100 /uL (0-900); Monocytes Percent Auto 7.3 % (3-14); Neutrophils Absolute Auto 10000 /uL (1500-7000); Neutrophils Percent Auto 66.6 % (50-75); Platelet Count 359 X10^3/uL (150-400); Red Blood Cell Count 4.51 X10^6/uL (4.5-5.9); Red Cell Distribution Width 14.4 % (11.6-14.8); White Blood Cell Count 15.1 X10^3/uL (4.5-11.0)
[2024-06-08] MEDS: SODIUM CHLORIDE 0.9% FLUSH 10 ML IV ×3 (06:22→20:51)
[2024-06-08 08:00] VITALS: BP 130/77; PULSE 69; RESP 21; TEMP 36.6; O2SAT 97
[2024-06-08] MEDS: ENOXAPARIN 40 MG/0.4 ML SYRINGE SUBCUT (08:03)
--- NOTE | 2024-06-08 10:50 | CM.DPC ---
DCP Cont. Reviewed EMR and team rounds for status updates. Cultures are still pending, plan is oral ABO's at time of d/c. Monitoring for any further needs.
[2024-06-08] MEDS: methocarbamoL 500 MG TABLET 750 MG PO ×2 (12:18→18:18)
[2024-06-08 12:21] LABS: Vancomycin Trough 10.1 ug/mL (10-20)
[2024-06-08] MEDS: VANCOMYCIN TROUGH 1 REQUEST MISC (12:30)
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
[2024-06-08 20:00] VITALS: BP 133/92; PULSE 61; RESP 20; TEMP 37; O2SAT 98
[2024-06-08] MEDS: cefTRIAXone 2,000 MG in SODIUM CHLORIDE 0.9% 100 ML 200 MG IV (20:51)
[2024-06-09] MEDS: methocarbamoL 500 MG TABLET 750 MG PO ×4 (00:16→22:45)
[2024-06-09] MEDS: SODIUM CHLORIDE 0.9% FLUSH 10 ML IV ×4 (01:55→21:58)
[2024-06-09] MEDS: VANCOMYCIN 1,000 MG in SODIUM CHLORIDE 0.9% 250 ML 250 MG IV ×4 (02:00→20:55)
[2024-06-09] MEDS: HYDROCODONE/ACET 5/325 TABLET 1 TAB PO (02:06)
[2024-06-09] MEDS: ZOLPIDEM 5 MG TABLET PO ×2 (02:52→22:45)
[2024-06-09 06:18] LABS: Add Manual Diff / Slide Review NO; Basophils Absolute Auto 200 /uL (0-100); Basophils Percent Auto 1.4 % (0-2); Eosinophils Absolute Auto 300 /uL (0-450); Eosinophils Percent Auto 2.1 % (2-4); Hematocrit 38.1 % (41-53); Hemoglobin 13.4 g/dL (13.5-17.5); Lymphocytes Absolute Auto 3500 /uL (1100-4500); Lymphocytes Percent Auto 23.7 % (25-40); Mean Corpuscular HGB Conc 35.2 % (30-36); Mean Corpuscular Hemoglobin 31.1 PG (26-34); Mean Corpuscular Volume 88.2 fL (80-100); Monocytes Absolute Auto 1000 /uL (0-900); Monocytes Percent Auto 6.9 % (3-14); Neutrophils Absolute Auto 9800 /uL (1500-7000); Neutrophils Percent Auto 65.9 % (50-75); Platelet Count 417 X10^3/uL (150-400); Red Blood Cell Count 4.32 X10^6/uL (4.5-5.9); White Blood Cell Count 14.9 X10^3/uL (4.5-11.0)
[2024-06-09 06:39] LABS: BUN Creatinine Ratio 15.4 (6-22); Blood Urea Nitrogen 12 mg/dL (9-20); Calcium 8.7 mg/dL (8.4-10.2); Carbon Dioxide 23 mmol/L (22-32); Chloride 106 mmol/L (98-107); Estimated Glomerular Filt Rate > 60 mL/min (>60); Glucose 112 mg/dL (70-99); HEMOLYSIS < 15 (0-50); Potassium 4.1 mmol/L (3.4-5.1); Sodium 135 mmol/L (137-145)
[2024-06-09] MEDS: ENOXAPARIN 40 MG/0.4 ML SYRINGE SUBCUT (09:33)
[2024-06-09 10:00] VITALS: BP 122/80; RESP 18; TEMP 36.7; O2SAT 97
--- NOTE | 2024-06-09 10:19 | CM.DPC ---
DCP Cont. Reviewed EMR and team rounds for status updates. Per Hospitalist, pt will need 2-more days of inpt IV ABO's before being medically cleared for home d/c. His will transport once he's medically stable. Monitoring for any further evolving needs, however at this time no CM d/c needs are anticipated.
[2024-06-09 12:16] LABS: Vancomycin Trough 20.3 ug/mL (10-20)
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
[2024-06-09 20:00] VITALS: BP 148/79; PULSE 65; RESP 20; TEMP 36.9; O2SAT 99
[2024-06-09] MEDS: cefTRIAXone 2,000 MG in SODIUM CHLORIDE 0.9% 100 ML 200 MG IV (21:57)
[2024-06-10] MEDS: VANCOMYCIN 1,000 MG in SODIUM CHLORIDE 0.9% 250 ML 250 MG IV ×2 (02:37→09:09)
[2024-06-10 06:15] LABS: Add Manual Diff / Slide Review NO; Basophils Absolute Auto 100 /uL (0-100); Basophils Percent Auto 0.8 % (0-2); Eosinophils Absolute Auto 300 /uL (0-450); Eosinophils Percent Auto 1.8 % (2-4); Hematocrit 39.5 % (41-53); Hemoglobin 13.9 g/dL (13.5-17.5); Lymphocytes Absolute Auto 3200 /uL (1100-4500); Lymphocytes Percent Auto 20.8 % (25-40); Mean Corpuscular HGB Conc 35.2 % (30-36); Mean Corpuscular Hemoglobin 30.9 PG (26-34); Monocytes Absolute Auto 1000 /uL (0-900); Monocytes Percent Auto 6.8 % (3-14); Neutrophils Absolute Auto 10600 /uL (1500-7000); Neutrophils Percent Auto 69.8 % (50-75); Platelet Count 473 X10^3/uL (150-400); Red Blood Cell Count 4.49 X10^6/uL (4.5-5.9); White Blood Cell Count 15.2 X10^3/uL (4.5-11.0)
[2024-06-10 06:36] LABS: BUN Creatinine Ratio 15.4 (6-22); Blood Urea Nitrogen 12 mg/dL (9-20); Calcium 8.7 mg/dL (8.4-10.2); Carbon Dioxide 22 mmol/L (22-32); Chloride 106 mmol/L (98-107); Estimated Glomerular Filt Rate > 60 mL/min (>60); Glucose 114 mg/dL (70-99); HEMOLYSIS < 15 (0-50); Potassium 4.2 mmol/L (3.4-5.1); Sodium 135 mmol/L (137-145)
[2024-06-10 07:00] VITALS: BP 138/89; PULSE 70; RESP 18; TEMP 36.7; O2SAT 99
[2024-06-10] MEDS: ENOXAPARIN 40 MG/0.4 ML SYRINGE SUBCUT (09:08)
[2024-06-10] MEDS: SODIUM CHLORIDE 0.9% FLUSH 10 ML IV (09:10)
--- NOTE | 2024-06-10 10:15 | CM.DPC ---
DCP Cont. Reviewed EMR and team rounds for status updates. Pt has been medically cleared for home d/c. His family will be transporting him home, no further DCP needs identified at this time.
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
--- NOTE | 2024-06-15 14:23 | PC.NURSE ---
late entry- per RN the 06/05 dose @ 1545 of Vancomycin IV was completed at 1750.
== END 2024-06-10 12:21 | disposition home or self-care (01) | DRG 603 ==
LOC: ED 15:40 → AC 16:12
PROVIDERS: Internal Medicine; Admitting Provider Family Medicine; Emergency Provider Emergency Medicine; Referring Provider Emergency Medicine; Visit Provider Family Medicine
DX: L03.116 Cellulitis of left lower limb (principal); E87.1 Hypo-osmolality and hyponatremia; S88.92 Partial traumatic amputation of lower leg, level unspecified; F17.200 Nicotine dependence, unspecified, uncomplicated; E78.5 Hyperlipidemia, unspecified; R73.9 Hyperglycemia, unspecified; I87.2 Venous insufficiency (chronic) (peripheral); V29.99XS Rider (driver) (passenger) of other motorcycle injured in unspecified traffic accident, sequela; Z83.3 Family history of diabetes mellitus; Z88.0 Allergy status to penicillin
CPT/HCPCS: 36415; 71045; 73562; 75635; 80048; 80053; 80202; 81001; 82550; 83036; 83605; 83690; 84145; 85025; 85610; 85730; 87040; 87077; 87086; 87186; 93005; 93010; 93971; 96361; 96365; 96366; 96367; 99284; J0696; J1650; Q9967

== ENCOUNTER → 2024-06-23 08:41 | Outpatient (CLI) | payer MEDICARE, SELFPAY ==
[2024-06-05 17:15] VITALS: BMI 30.4
== END ==
LOC: WC 08:43
PROVIDERS: Referring Provider Hospitalist; Visit Provider Surgery
DX: B99.9 Unspecified infectious disease (principal); L97.822 Non-pressure chronic ulcer of other part of left lower leg with fat layer exposed; R60.0 Localized edema; L03.116 Cellulitis of left lower limb; E78.5 Hyperlipidemia, unspecified; Z72.0 Tobacco use
CPT/HCPCS: 11042; 87070; 87077; 87186; 87205; 99203; 99213

== ENCOUNTER → 2024-06-29 08:46 | Outpatient (CLI) | payer MEDICARE, SELFPAY ==
[2024-06-05 17:15] VITALS: BMI 30.4
== END ==
LOC: WC 08:49
PROVIDERS: Referring Provider Hospitalist; Visit Provider Surgery
DX: B99.9 Unspecified infectious disease (principal); L97.822 Non-pressure chronic ulcer of other part of left lower leg with fat layer exposed; R60.0 Localized edema; L03.116 Cellulitis of left lower limb
CPT/HCPCS: 11042

== ENCOUNTER → 2024-07-06 10:44 | Outpatient (CLI) | payer MEDICARE, SELFPAY ==
[2024-06-05 17:15] VITALS: BMI 30.4
== END ==
LOC: WC 10:45
PROVIDERS: Referring Provider Hospitalist; Visit Provider Surgery
DX: B99.9 Unspecified infectious disease (principal); L97.822 Non-pressure chronic ulcer of other part of left lower leg with fat layer exposed; R60.0 Localized edema; L03.116 Cellulitis of left lower limb
CPT/HCPCS: 11042

== ENCOUNTER → 2024-07-13 09:11 | Outpatient (CLI) | payer MEDICARE, SELFPAY ==
[2024-06-05 17:15] VITALS: BMI 30.4
== END ==
LOC: WC 09:12
PROVIDERS: Referring Provider Hospitalist; Visit Provider Surgery
DX: B99.9 Unspecified infectious disease (principal); L97.822 Non-pressure chronic ulcer of other part of left lower leg with fat layer exposed; L03.116 Cellulitis of left lower limb; R60.0 Localized edema
CPT/HCPCS: 11042

== ENCOUNTER → 2024-07-15 09:08 | Outpatient (CLI) | payer MEDICARE, SELFPAY ==
[2024-06-05 17:15] VITALS: BMI 30.4
== END ==
LOC: WC 09:09
PROVIDERS: Referring Provider Hospitalist; Visit Provider Surgery
DX: B99.9 Unspecified infectious disease (principal); L97.822 Non-pressure chronic ulcer of other part of left lower leg with fat layer exposed; R60.0 Localized edema
CPT/HCPCS: 29581

== ENCOUNTER → 2024-07-20 08:32 | Outpatient (CLI) | payer MEDICARE, SELFPAY ==
[2024-06-05 17:15] VITALS: BMI 30.4
== END ==
LOC: WC 08:34
PROVIDERS: Referring Provider Hospitalist; Visit Provider Surgery
DX: B99.9 Unspecified infectious disease (principal); L97.822 Non-pressure chronic ulcer of other part of left lower leg with fat layer exposed; R60.0 Localized edema; L03.116 Cellulitis of left lower limb
CPT/HCPCS: 11042; 99213

== ENCOUNTER → 2024-07-27 08:27 | Outpatient (CLI) | payer MEDICARE, SELFPAY ==
[2024-06-05 17:15] VITALS: BMI 30.4
== END ==
LOC: WC 08:28
PROVIDERS: Visit Provider Surgery
DX: B99.9 Unspecified infectious disease (principal); L97.822 Non-pressure chronic ulcer of other part of left lower leg with fat layer exposed; R60.0 Localized edema; L03.116 Cellulitis of left lower limb
CPT/HCPCS: 11042

== ENCOUNTER → 2024-11-22 09:15 | Outpatient (CLI) | payer MEDICARE, SELFPAY ==
[2024-06-05 17:15] VITALS: BMI 30.4
== END ==
LOC: WC 09:16
PROVIDERS: Referring Provider Hospitalist; Visit Provider Surgery
DX: L97.822 Non-pressure chronic ulcer of other part of left lower leg with fat layer exposed (principal); R60.0 Localized edema; F17.200 Nicotine dependence, unspecified, uncomplicated
CPT/HCPCS: 11042; 99213